=== PATIENT | male | born 1990 | race Two or more races ===

== ENCOUNTER 2018-11-19 23:36 | Emergency (ER) | payer SELFPAY ==
[~2018-11-19] VITALS: Ht 180.3 cm; Wt 166.6 kg
[2018-11-20] MEDS ORDERED: IPRATROPIUM BROMIDE (0.02%) 0.5MG/2.5ML NEB HHN ONE (00:45)
[2018-11-20] MEDS ORDERED: ALBUTEROL (0.083%) 2.5MG/3ML NEB HHN ONE (00:45)
[2018-11-20] MEDS ORDERED: PREDNISONE 20MG TABLET PO ONE (00:45)
[2018-11-20 04:33] VITALS: BP 148/84
== END 2018-11-20 08:35 | disposition home or self-care (01) ==
LOC: ER 11-20 08:35
DX: J45.901 Unspecified asthma with (acute) exacerbation (principal)
CPT/HCPCS: 99283; J7512; J7611

== ENCOUNTER 2019-06-29 00:53 | Emergency (ER) | payer MEDICAID ==
[~2019-06-29] VITALS: Ht 180.3 cm; Wt 118.0 kg
[2019-06-29] MEDS ORDERED: ACETAMINOPHEN 325MG TABLET PO STA (01:46)
[2019-06-29 02:04] LABS: BASOPHILS % 0.9 % (0.0-2.0); EOSINOPHILS % 5.2 % (0.0-5.0); HEMATOCRIT. 39.6 % (42.0-52.0); HEMOGLOBIN. 12.9 g/dL (14.0-18.0); LYMPHOCYTES % 40.3 % (20.0-50.0); MEAN PLATELET VOLUME 8.4 fl (7.4-10.4); NEUTROPHILS % 45.6 % (40.0-76.0); PLATELET 281 x1000/uL (130-400); RED BLOOD CELL COUNT 4.95 mill/uL (4.7-6.1); RED CELL DISTRIBUTION WIDTH 14.8 % (11.6-14.6)
[2019-06-29 02:06] LABS: CHLORIDE 107 mEq/L (98-107)
[2019-06-29 03:17] LABS: CLARITY URINE CLEAR (CLEAR); COLOR URINE YELLOW (YELLOW); KETONES URINE NEGATIVE (NEGATIVE); LEUKOCYTE ESTERASE URINE NEGATIVE (NEGATIVE); NITRITE URINE NEGATIVE (NEGATIVE); OCCULT BLOOD URINE NEGATIVE (NEGATIVE); PH URINE 5.5 (4.5-8.0); PROTEIN URINE NEGATIVE (NEGATIVE); UROBILINOGEN URINE 0.2 E.U./dL (0.2-1.0)
[2019-06-29 04:45] VITALS: BP 146/74
== END 2019-06-29 04:49 | disposition home or self-care (01) ==
LOC: ER 00:53
DX: R07.89 Other chest pain (principal); J45.909 Unspecified asthma, uncomplicated
CPT/HCPCS: 36415; 71045; 83880; 84484; 85379; 93005; 99284

== ENCOUNTER 2019-08-01 02:36 | Emergency (ER) | payer MEDICAID ==
[~2019-08-01] VITALS: Ht 167.6 cm; Wt 116.0 kg
[2019-08-01 05:00] VITALS: BP 154/87
== END 2019-08-01 05:01 | disposition home or self-care (01) ==
LOC: ER 02:36
DX: T16.2XXA Foreign body in left ear, initial encounter (principal); T16.1XXA Foreign body in right ear, initial encounter; J45.909 Unspecified asthma, uncomplicated; X58.XXXA Exposure to other specified factors, initial encounter; Y93.89 Activity, other specified; Y92.9 Unspecified place or not applicable
CPT/HCPCS: 69200; 99284

== ENCOUNTER 2019-09-19 01:37 | Emergency (ER) | payer MEDICAID ==
[~2019-09-19] VITALS: Ht 180.3 cm; Wt 123.0 kg
[2019-09-19 03:43] VITALS: BP 144/95
== END 2019-09-19 03:44 | disposition home or self-care (01) ==
LOC: ER 01:37
DX: H60.92 Unspecified otitis externa, left ear (principal); H92.02 Otalgia, left ear; J45.909 Unspecified asthma, uncomplicated
CPT/HCPCS: 99281

== ENCOUNTER 2022-05-27 03:07 | Emergency (ER) | payer MEDICAID ==
[~2022-05-27] VITALS: Ht 180.3 cm; Wt 138.0 kg
[~2022-05-27 03:07] MED LIST: ALBU6.7H9 INH; PRED10TA MT
[2022-05-27] MEDS ORDERED: ALBUTEROL (0.083%) 2.5MG/3ML NEB HHN STA (05:06)
[2022-05-27] MEDS ORDERED: IPRATROPIUM BROMIDE (0.02%) 0.5MG/2.5ML NEB HHN STA (05:06)
[2022-05-27] MEDS ORDERED: PREDNISONE 20MG TABLET PO STA (05:06)
[2022-05-27] MEDS ORDERED: P20 MT (05:48)
[2022-05-27] MEDS ORDERED: ALBU6.7H9 INH (05:48)
[2022-05-27 06:21] VITALS: BP 122/78
== END 2022-05-27 06:21 | disposition home or self-care (01) ==
LOC: ER 03:07
DX: J45.901 Unspecified asthma with (acute) exacerbation (principal); Z76.0 Encounter for issue of repeat prescription
CPT/HCPCS: 71045; 94644; 99285; J7512; Z7610

== ENCOUNTER 2022-07-24 00:32 | Emergency (ER) | payer MEDICAID ==
[~2022-07-24] VITALS: Ht 180.3 cm; Wt 132.0 kg
[~2022-07-24 00:32] MED LIST changes: +P20 MT
[2022-07-24] MEDS ORDERED: IPRATROPIUM BROMIDE (0.02%) 0.5MG/2.5ML NEB HHN STA (01:10)
[2022-07-24] MEDS ORDERED: ALBUTEROL (0.083%) 2.5MG/3ML NEB HHN STA (01:10)
[2022-07-24] MEDS ORDERED: PREDNISONE 20MG TABLET PO STA (01:10)
[2022-07-24] MEDS ORDERED: ALBU6.7H9 INH (02:45)
[2022-07-24] MEDS ORDERED: P50 MT (02:46)
[2022-07-24 03:09] VITALS: BP 132/82
== END 2022-07-24 03:14 | disposition home or self-care (01) ==
LOC: ER 00:32
DX: J45.901 Unspecified asthma with (acute) exacerbation (principal)
CPT/HCPCS: 93005; 94640; 99283; J7512; Z7610

== ENCOUNTER 2022-10-14 02:24 | Emergency (ER) | payer MEDICAID ==
[~2022-10-14] VITALS: Ht 180.3 cm; Wt 132.0 kg
[~2022-10-14 02:24] MED LIST changes: +ALBU6.7H3 INH; -ALBU6.7H9 INH; +P50 MT
[2022-10-14 02:36] VITALS: BP 144/94
== END 2022-10-14 08:18 | disposition left against medical advice (07) ==
LOC: ER 03:01
DX: Z53.21 Procedure and treatment not carried out due to patient leaving prior to being seen by health care provider (principal)

== ENCOUNTER → 2022-10-17 | Emergency (ER) | payer MEDICAID ==
[~2022-10-17] VITALS: Ht 180.3 cm; Wt 141.0 kg
[~2022-10-17] MED LIST changes: +ALBU18HF2 IH; +ALBUTEROL (0.083%) 2.5MG/3ML NEB HHN STA; +FLUT1DIS3 INH; +IPRATROPIUM BROMIDE (0.02%) 0.5MG/2.5ML NEB HHN STA; +PREDNISONE 20MG TABLET PO STA
[2022-10-17 20:12] VITALS: BP 147/96
== END | disposition home or self-care (01) ==
LOC: ER 19:45
DX: J45.901 Unspecified asthma with (acute) exacerbation (principal)
CPT/HCPCS: 94640; 99283; J7512; Z7610

== ENCOUNTER 2023-11-25 01:01 | Emergency (ER) | payer MEDICAID ==
[~2023-11-25] VITALS: Ht 180.3 cm; Wt 137.0 kg
[~2023-11-25 01:01] MED LIST changes: -ALBUTEROL (0.083%) 2.5MG/3ML NEB HHN STA; -IPRATROPIUM BROMIDE (0.02%) 0.5MG/2.5ML NEB HHN STA; -PREDNISONE 20MG TABLET PO STA
[2023-11-25 01:31] LABS: HEMATOCRIT. 42.1 % (42.0-52.0); HEMOGLOBIN. 13.5 g/dL (14.0-18.0); MEAN CORPUSCULAR HEMOGLOBIN 25.5 pg (28.0-32.0); MEAN CORPUSCULAR VOLUME 79.7 fL (80.0-94.0); MEAN PLATELET VOLUME 8.5 fl (7.4-10.4); PLATELET 283 x1000/uL (130-400); RED BLOOD CELL COUNT 5.28 mill/uL (4.7-6.1); RED CELL DISTRIBUTION WIDTH 15.7 % (11.6-14.6); WHITE BLOOD COUNT 6.1 x1000/uL (4.5-11.0)
[2023-11-25 01:35] LABS: DIFFERENTIAL COMMENT 1
[2023-11-25 01:47] LABS: ALANINE AMINOTRANSFERASE 29 IU/L (10-49); ALBUMIN 4.3 g/dL (3.2-4.8); ASPARTATE AMINOTRANSFERASE 38 IU/L (<34); BILIRUBIN TOTAL 0.3 mg/dL (0.1-1.0); CARBON DIOXIDE 29 mEq/L (21-32); CHLORIDE 103 mEq/L (98-107); CREATININE 1.1 mg/dL (0.6-1.3); GLUCOSE 102 mg/dL (70-105); POTASSIUM 3.4 mEq/L (3.5-5.1); PROTEIN TOTAL 8.2 g/dL (6.0-8.3); SODIUM 138 mEq/L (136-145); TROPONIN I HIGH SENSITIVITY 8 ng/L (3.0-53); UREA NITROGEN BLOOD 15 mg/dL (9-23)
[2023-11-25 01:51] LABS: PARTIAL THROMBOPLASTIN TIME 31.6 sec (23.4-31.0); PROTHROMBIN TIME 10.7 sec (9.6-11.0)
[2023-11-25 02:03] LABS: MICROCYTOSIS 1+; PLATELET ESTIMATE NORMAL
[2023-11-25 02:30] LABS: CLARITY URINE CLEAR (CLEAR); COLOR URINE YELLOW (YELLOW); GLUCOSE URINE NEGATIVE (NEGATIVE); KETONES URINE NEGATIVE (NEGATIVE); LEUKOCYTE ESTERASE URINE NEGATIVE (NEGATIVE); NITRITE URINE NEGATIVE (NEGATIVE); OCCULT BLOOD URINE NEGATIVE (NEGATIVE); PH URINE 5.5 (4.5-8.0); PROTEIN URINE 1+ (NEGATIVE); SPECIFIC GRAVITY URINE 1.025 (1.005-1.030)
[2023-11-25 02:35] LABS: BACTERIA URINE NONE SEEN; RBC URINE 0-2 /hpf (0-2); SQUAMOUS EPITHELIAL CELL URINE NONE SEEN /lpf (RARE/1+); WBC URINE 0-2 /hpf (0-2)
[2023-11-25] MEDS ORDERED: IPRATROPIUM BROMIDE (0.02%) 0.5MG/2.5ML NEB HHN STA (03:19)
[2023-11-25] MEDS ORDERED: DEXAMETHASONE 1MG TABLET PO ONE (03:30)
[2023-11-25] MEDS ORDERED: DEXAMETHASONE 2MG TABLET PO NR (04:15)
[2023-11-25 05:13] LABS: TROPONIN I HIGH SENSITIVITY 8 ng/L (3.0-53)
[2023-11-25] MEDS ORDERED: AZIT250T MT ×2 (05:23)
[2023-11-25] MEDS ORDERED: ALBUTEROL (0.083%) 2.5MG/3ML NEB ONE (06:22)
[2023-11-25] MEDS ORDERED: IPRATROPIUM BROMIDE (0.02%) 0.5MG/2.5ML NEB ONE ×2 (06:22)
[2023-11-25] MEDS: ALBUTEROL (0.083%) 2.5MG/3ML NEB HHN SCH ×2 (06:25→06:26)
[2023-11-25 06:26] VITALS: PULSE 105; RESP 20; O2SAT 96
[2023-11-25] MEDS ORDERED: ALBU6.7H15 INH (06:52)
[2023-11-25] MEDS ORDERED: P50 PO (06:52)
[2023-11-25 07:06] VITALS: BP 125/82; PULSE 98; RESP 15; TEMP 98.2
== END 2023-11-25 07:11 | disposition home or self-care (01) ==
LOC: ER 01:31
DX: J45.901 Unspecified asthma with (acute) exacerbation (principal)
CPT/HCPCS: 94640; 80053; 81003; 85025; 85610; 85730; 84484; 36415; 71045; 93005; 99285; Z7610 ×2; J8540

== ENCOUNTER 2024-07-05 04:40 | Emergency (ER) | payer MEDICAID, OTHER ==
[~2024-07-05] VITALS: Ht 180.3 cm; Wt 137.0 kg
[~2024-07-05 04:40] MED LIST changes: +ALBU6.7H15 INH; +P50 PO
[2024-07-05] MEDS ORDERED: DEXAMETHASONE 4MG TABLET PO ONE (05:15)
[2024-07-05] MEDS: DEXAMETHASONE 2MG TABLET PO NR (05:44)
[2024-07-05] MEDS: IPRATROPIUM/ALBUTEROL 0.5-3(2.5)MG/3ML NEB HHN STA (05:47)
[2024-07-05 05:49] VITALS: PULSE 96; RESP 26; O2SAT 96
[2024-07-05 07:21] VITALS: PULSE 94; RESP 24
[2024-07-05] MEDS: IPRATROPIUM/ALBUTEROL 0.5-3(2.5)MG/3ML NEB HHN ONE ×2 (07:21)
[2024-07-05] MEDS ORDERED: ALBU6.7H15 INH (09:39)
[2024-07-05 09:48] VITALS: BP 154/90; PULSE 85; RESP 20; TEMP 98.5
== END 2024-07-05 09:50 | disposition home or self-care (01) ==
LOC: ER 04:40
DX: J45.901 Unspecified asthma with (acute) exacerbation (principal); Z79.899 Other long term (current) drug therapy
CPT/HCPCS: 71045; 94640; 93005; 99284; J8540; Z7610 ×3

== ENCOUNTER 2025-07-20 04:56 | Emergency (ER) | payer SELFPAY ==
[~2025-07-20] VITALS: Ht 180.3 cm; Wt 156.1 kg
[2025-07-20 05:01] VITALS: TEMP 36.9; O2SAT 100
[2025-07-20] MEDS ORDERED: IBUP-2029 MT (05:33)
[2025-07-20] MEDS ORDERED: CYCL10TA21 MT (05:33)
[2025-07-20] MEDS: IBUPROFEN 600MG TABLET PO ONE (05:58)
[2025-07-20 06:55] VITALS: BP 209/125; PULSE 94; RESP 20; O2SAT 97
== END 2025-07-20 06:58 | disposition home or self-care (01) ==
LOC: ER 04:56
DX: M54.50 Low back pain, unspecified (principal); J45.909 Unspecified asthma, uncomplicated
CPT/HCPCS: 99283